=== PATIENT | female | born 1965 | race Caucasian/White ===

== ENCOUNTER 2019-11-24 20:40 | Emergency (ER) | payer MEDICARE, OTHER ==
[~2019-11-24] VITALS: Ht 170.2 cm; Wt 140.6 kg
[2019-11-24] MEDS ORDERED: DOCUSATE SODIU100 MG ORAL (21:01)
[2019-11-24] MEDS ORDERED: TOPIRAMATE25 MG ORAL (21:01)
[2019-11-24] MEDS ORDERED: ATORVASTATIN CA20 MG ORAL (21:01)
[2019-11-24] MEDS ORDERED: FAMOTIDINE20 MG ORAL (21:01)
[2019-11-24] MEDS ORDERED: LOPID600 MG ORAL (21:01)
[2019-11-24] MEDS ORDERED: PLAVIX75 MG ORAL (21:01)
[2019-11-24] MEDS ORDERED: Morphine Sulfate 4mg/ml Inj (IV USE ONLY) ONE (23:10)
[2019-11-24] MEDS ORDERED: Morphine Sulfate 2mg/ml Inj(IV/IM USE ONLY) IM ONE (23:15)
[2019-11-24] MEDS ORDERED: NORCO 5-325 TA1 EAC1 ORAL ×2 (23:32→23:34)
[2019-11-25 00:25] VITALS: BP 118/69
--- NOTE | 2019-11-25 15:08 | Diagnostic Imaging Report ---
Indication: Pain, trauma Technique: 3 views of the right ankle Comparison: None Findings: There is what appears to be an avulsion fracture of the superior posterior calcaneal tuberosity. The bones are osteoporotic. No other acute fractures. No dislocations. The joint spaces are preserved. Impression: Positive for calcaneal tuberosity avulsion fracture. This agrees with the preliminary interpretation reported by the emergency room physician in the electronic medical record
--- NOTE | 2019-11-26 14:19 | Emergency Room Report ---
History of Present Illness General Chief Complaint: Lower Extremity Injury Source: Patient, Medical Record, EMS Present Illness HPI Patient is a 54-year-old female who was sent in by nursing facility after increased right lower extremity pain. Patient was noted to be wheelchair- bound. She had previous x-ray imaging which showed fracture to her medial malleolus. Patient had been noted to be nonambulatory. Reports having increased pain to the area. Injury occurred several days prior to arrival. Denies any other locations of discomfort. Allergies: Coded Allergies: No Known Allergies (Unverified , 11/24/19) COVID-19 Screening Contact w/high risk pt: No Recent Travel to affected area: No Experienced COVID-19 symptoms?: No Patient History Past Medical History: see triage record Now: No Reviewed Nursing Documentation: PMH: Agreed; PSxH: Agreed Nursing Documentation-PMH Past Medical History: No History, Except For Hx Hypertension: Yes Hx COPD: Yes Hx Gastrointestinal Problems: Yes - GERD Review of Systems All Other Systems: negative except mentioned in HPI Physical Exam Vital Signs Date Time Temp Pulse Resp B/P (MAP) Pulse Ox O2 Delivery O2 Flow Rate FiO2 11/24/19 20:34 98.1 91 18 118/69 (85) 96 Room Air General Appearance: no apparent distress, alert, GCS 15, Chronically Ill Head: normocephalic, atraumatic ENT: hearing grossly normal, normal voice Neck: full range of motion, supple Respiratory: chest non-tender, lungs clear, no respiratory distress, speaking full sentences Cardiovascular #1: no edema Musculoskeletal: no calf tenderness Neurologic: normal gait Psychiatric: mood/affect normal Skin: no rash Medical Decision Making Diagnostic Impression: Primary Impression: Calcaneus fracture ER Course patient presented after injury to lower extremity. Differential diagnosis include was not limited to fracture, contusion, sprain among others. Because of patient's history of fracture imaging studies were ordered. X-ray imaging of the foot showed calcaneal fracture. Patient was placed in a posterior splint. Patient was given pain medications in the emergency department She appears to be stable for outpatient management. Patient was noted to be nonambulatory. Patient was sent back to her facility to have orthopedic follow- up as an outpatient. Dr. Jhonny Izaguirre was contacted and was informed of the patient's fracture and is the patient's primary care physician. Last Vital Signs Date Time Temp Pulse Resp B/P (MAP) Pulse Ox O2 Delivery O2 Flow Rate FiO2 11/25/19 00:25 98.1 18 118/69 96 Room Air 11/24/19 20:34 91 Status: improved Disposition: HOME, SELF-CARE Condition: Stable Scripts Hydrocodone Bit/Acetaminophen 5-325* (NORCO 5-325 TABLET*) 1 Each Tablet 1 TAB ORAL Q4H PRN for FOR PAIN, #20 TAB 0 Refills Prov: Mason Ross MD 11/24/19 Patient Instructions: Cast or Splint Care, [id number], Ankle Fracture Additional Instructions: Follow up with orthopedics. Mason Ross MD Nov 26, 2019 14:19
== END 2019-11-25 00:25 | disposition home or self-care (01) ==
LOC: EDBD 20:40 → EMR 21:00
DX: S92.031A Displaced avulsion fracture of tuberosity of right calcaneus, initial encounter for closed fracture (principal); M81.0 Age-related osteoporosis without current pathological fracture; Z99.3 Dependence on wheelchair; I10 Essential (primary) hypertension; J44.9 Chronic obstructive pulmonary disease, unspecified; K21.9 Gastro-esophageal reflux disease without esophagitis
CPT/HCPCS: 29515; 73600; 96372; 99283; J2270